=== PATIENT | female | born 1990 | race Caucasian/White ===

== ENCOUNTER 2020-07-27 14:44 | Outpatient (CLI) | payer OTHER | END 2020-07-27 14:58 | disposition home or self-care (01) | LOC: MRI 14:44 | PROVIDERS: ATTEND Physical Medicine & Rehabilitation | DX: M51.26 Other intervertebral disc displacement, lumbar region (principal); M46.1 Sacroiliitis, not elsewhere classified; M46.08 Spinal enthesopathy, sacral and sacrococcygeal region; M54.41 Lumbago with sciatica, right side; M54.42 Lumbago with sciatica, left side; M51.36 Other intervertebral disc degeneration, lumbar region | CPT/HCPCS: 72148 ==